=== PATIENT | female | born 1935 | race Caucasian/White ===

== ENCOUNTER 2017-05-28 06:57 | Day surgery (SDC) | payer MEDICARE, BC ==
[2017-05-26 09:33] VITALS: BMI 24.3
[~2017-05-28 06:57] MED LIST: LACTATED RINGERS 1,000 ML IV SCH
[2017-05-28 07:29] LABS: Glucose,Whole Blood 148 mg/dL (75-99)
[2017-05-28 07:30] VITALS: TEMP 97.2
[2017-05-28] MEDS ORDERED: LIDOCAINE 1% INJ 10MG/ML (20 ML MDV) ONE (07:32)
[2017-05-28] MEDS ORDERED: PROPOFOL 10 MG/ML 20 ML VIAL IV ONE (07:32)
--- NOTE | 2017-05-28 08:00 | P.PCN ---
Date of Procedure: 05/28/17 Preoperative Diagnosis: Postoperative Diagnosis: Procedure(s) Performed: Brief history: Patient is a pleasant 81-year-old white female, scheduled for an elective upper endoscopy as well as colonoscopy as a part of evaluation of long-standing history of GERD and Patiño's esophagus as well as prior history of colon polyps. Last EGD and colonoscopy was done in 2013. Procedure performed: Esophagogastroduodenoscopy with biopsy Colonoscopy Preoperative diagnosis: GERD/Patiño's esophagus History of colon polyps Anesthesia: MAC Procedure: After informed consent was obtained from the patient was brought into the endoscopy unit and IV sedation was administered by anesthesia under continuous monitoring. Initially upper endoscopy was done. The Olympus GF 160 video endoscope was inserted inserted into the mouth and esophagus intubated without any difficulty and was gradually advanced into the stomach and duodenum and carefully examined. The bulb and second part of the duodenum appeared normal. The scope was then withdrawn into the stomach adequately insufflated with air and upon careful examination the antrum and body, cardia and fundus appeared normal. The scope was then withdrawn into the esophagus. Moderate size hiatal hernia noted. The GE junction was located at 36 cm to the incisors. It appeared regular with no erythema erosions or ulcerations. There was a 2 cm length of Patiño's like mucosa extending proximal to the GE junction from 34- 36 cm from the incisors and this was biopsied. Rest of the esophagus appeared normal. Patient tolerated the procedure well. At this time the patient continued to remain sedation. Initial digital rectal examination was normal. Olympus CF 160 video colonoscope was then inserted into the rectum and gradually advanced to the sigmoid colon and further advancement was not possible. The scope was removed and a pediatric colonoscope was then introduced into the rectum and gradually advanced into the cecum with [id number] difficulty. Careful examination was performed as the scope was gradually being withdrawn. The prep was excellent. The cecum, ascending colon, transverse colon, descending colon, sigmoid colon and rectum appeared normal. Left sided diverticulosis seen. Retroflexion was performed in the rectum and no lesions were noted. Patient tolerated the procedure well. Impression: 1. Upper endoscopy revealed Patiño's esophagus and moderate size hiatal hernia 2. Colonoscopy revealed left sided diverticulosis but no evidence of colitis or colorectal neoplasia Recommendations: Findings of this examination were discussed with the patient as well as her family. She was advised to follow with the biopsy results. If the biopsy confirms the presence of Patiño's esophagus she can have a repeat upper endoscopy in 2 years Implants: Indications for Procedure: Operative Findings: Description of Procedure:
[2017-05-28 08:12] VITALS: RESP 16
[2017-05-28 08:21] VITALS: BP 125/78; PULSE 66
== END 2017-05-28 08:58 | disposition home or self-care (01) ==
LOC: ORWHC2ENDO 06:57
PROVIDERS: ATTEND Internal Medicine Gastroenterology
DX: Z12.11 Encounter for screening for malignant neoplasm of colon (principal); K22.70 Barrett's esophagus without dysplasia; K44.9 Diaphragmatic hernia without obstruction or gangrene; K57.30 Diverticulosis of large intestine without perforation or abscess without bleeding; Z86.010 Personal history of colon polyps; K58.9 Irritable bowel syndrome, unspecified; I25.10 Atherosclerotic heart disease of native coronary artery without angina pectoris; I10 Essential (primary) hypertension; E78.5 Hyperlipidemia, unspecified; I82.409 Acute embolism and thrombosis of unspecified deep veins of unspecified lower extremity; J44.9 Chronic obstructive pulmonary disease, unspecified; E07.9 Disorder of thyroid, unspecified; M19.90 Unspecified osteoarthritis, unspecified site; Z79.51 Long term (current) use of inhaled steroids; Z79.02 Long term (current) use of antithrombotics/antiplatelets; Z79.899 Other long term (current) drug therapy; Z88.1 Allergy status to other antibiotic agents; Z88.0 Allergy status to penicillin; Z88.2 Allergy status to sulfonamides; Z88.8 Allergy status to other drugs, medicaments and biological substances
CPT/HCPCS: 88305; 43239; J2001; J2704; G0105

== ENCOUNTER 2020-04-11 06:04 | Day surgery (SDC) | payer MEDICARE, BC ==
[2020-04-08 15:07] VITALS: BMI 18.7
[2020-04-11] MEDS ORDERED: PROPOFOL 10 MG/ML 20 ML VIAL IV ONE (07:05)
[2020-04-11] MEDS ORDERED: LIDOCAINE 1% INJ 10MG/ML (20 ML MDV) ONE (07:05)
--- NOTE | 2020-04-11 07:48 | PCN ---
PROCEDURE NOTE DATE OF PROCEDURE: 04/11/2020 PREOPERATIVE DIAGNOSIS: Anemia. POSTOPERATIVE DIAGNOSIS: Anemia. SITE: Right iliac crest. ANESTHESIA: Local with IV systemic sedation. DETAILS: Utilizing sterile technique, the skin overlying the right iliac crest was prepared with Betadine and alcohol. After adequate sterile draping, local anesthesia with 2% lidocaine and systemic sedation, a size 11, 4-inch Little Birdshidi needle was utilized to access the periosteum with ease. A total of 15 mL of aspirate and 3 cm of bone core biopsies were obtained. The patient tolerated the procedure well. There was no immediate procedure related complication. TOTAL BLOOD LOSS: Less than 1 mL. RESULTS: Pending. MMODL / IJN: [id number] /
[2020-04-11 08:18] LABS: Anisocytosis Slight; Basophils # (A) 0.1 k/uL (0-0.2); Basophils % (A) 1 %; Eosinophils # (A) 0.4 k/uL (0-0.7); Eosinophils % (A) 6 %; HCT 29.7 % (34.0-46.0); HGB 9.3 gm/dL (11.4-16.0); Hypochromasia Marked; Lymphocytes # (A) 1.3 k/uL (1.0-4.8); Lymphocytes % (A) 21 %; MCH 29.2 pg (25.0-35.0); MCHC 31.2 g/dL (31.0-37.0); MCV 93.8 fL (80.0-100.0); Mean Platelet Volume 8.5; Monocytes # (A) 0.4 k/uL (0-1.0); Monocytes % (A) 7 %; Neutrophils # (A) 3.8 k/uL (1.3-7.7); Neutrophils % (A) 63 %; Platelet Count 248 k/uL (150-450); RBC 3.17 m/uL (3.80-5.40); RDW 19.8 % (11.5-15.5); Reticulocyte % 6.1 % (0.5-2.0)
[2020-04-11] MEDS ORDERED: LABETALOL 5 MG/ML VIAL MDV IVP ONE ×2 (08:20→08:42)
[2020-04-11 15:42] LABS: Glucose,Whole Blood 152 mg/dL (75-99)
[2020-04-12 08:11] VITALS: BP 138/70; PULSE 59; RESP 17; TEMP 97.4
== END 2020-04-11 09:22 | disposition home or self-care (01) ==
LOC: OR 06:04
PROVIDERS: ATTEND Internal Medicine Hematology & Oncology
DX: D50.9 Iron deficiency anemia, unspecified (principal); E11.9 Type 2 diabetes mellitus without complications; J43.9 Emphysema, unspecified; E07.9 Disorder of thyroid, unspecified; E78.5 Hyperlipidemia, unspecified; J45.909 Unspecified asthma, uncomplicated; M15.9 Polyosteoarthritis, unspecified; I10 Essential (primary) hypertension; R41.3 Other amnesia; K21.9 Gastro-esophageal reflux disease without esophagitis; Z88.8 Allergy status to other drugs, medicaments and biological substances; Z88.1 Allergy status to other antibiotic agents; Z79.899 Other long term (current) drug therapy; Z79.51 Long term (current) use of inhaled steroids; Z79.4 Long term (current) use of insulin; Z79.890 Hormone replacement therapy; Z79.02 Long term (current) use of antithrombotics/antiplatelets; Z88.2 Allergy status to sulfonamides; Z88.0 Allergy status to penicillin; Z86.718 Personal history of other venous thrombosis and embolism; Z90.49 Acquired absence of other specified parts of digestive tract; Z98.890 Other specified postprocedural states; Z95.5 Presence of coronary angioplasty implant and graft; Z90.710 Acquired absence of both cervix and uterus; Z87.891 Personal history of nicotine dependence; Z87.828 Personal history of other (healed) physical injury and trauma; Z91.81 History of falling; Z98.41 Cataract extraction status, right eye; Z98.42 Cataract extraction status, left eye
CPT/HCPCS: 38222; 85025; 85045; J2001; J2704

== ENCOUNTER 2020-11-24 00:51 | Inpatient (IN) | payer MEDICARE, BC ==
[2020-11-24] MEDS ORDERED: PANTOPRAZOLE 40 MG/10 ML VIAL IVP STA (01:09)
--- NOTE | 2020-11-24 01:11 | ED ---
Recheck HPI - General Chief Complaint: Recheck/Abnormal Lab/Rx Stated Complaint: Low hemoglobin Time Seen by Provider: 11/24/20 00:53 Source: patient, EMS Mode of arrival: EMS Limitations: no limitations - History of Present Illness Initial Comments: 85 year-old female patient presents to the emergency department for evaluation of low hemoglobin. Patient states that she has a chronic GI bleed with black stool and has to have frequent blood transfusions. 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 Patient states over the last few days she has been feeling very weak, fatigued, and dizzy. States that she has been having intermittent chest pain. Denies any shortness of breath. Denies any bright red blood per rectum. Patient denies any recent rash, fever, chills, cough, abdominal pain, nausea, vomiting, diarrhea, constipation, back pain, numbness, tingling, hematuria, dysuria, urinary urgency, urinary frequency, headache, visual changes, or any other complaints. - Related Data Home Medications Medication Instructions Recorded Confirmed Cholecalciferol [Vitamin D3] 1,000 unit PO DAILY 05/26/17 04/08/20 Clopidogrel [Plavix] 75 mg PO DAILY 05/26/17 04/08/20 Levothyroxine Sodium [Synthroid] 50 mcg PO SUTUTHSA 05/26/17 04/08/20 Levothyroxine Sodium [Synthroid] 75 mcg PO MOWEFR 05/26/17 04/08/20 Omeprazole 20 mg PO BID 05/26/17 04/08/20 Acetaminophen [Tylenol Extra 500 mg PO BID 04/08/20 04/08/20 Strength] Aspirin [Adult Low Dose Aspirin EC] 81 mg PO DAILY 04/08/20 04/08/20 Atorvastatin [Lipitor] 40 mg PO HS 04/08/20 04/08/20 DULoxetine HCL [Cymbalta] 60 mg PO DAILY 04/08/20 04/08/20 Dicyclomine [Bentyl] 20 mg PO DAILY 04/08/20 04/08/20 Digoxin [Lanoxin] 125 mcg PO DAILY 04/08/20 04/08/20 Insulin Detemir (Levemir) [Levemir] 28 unit SQ HS 04/08/20 04/08/20 L.acidoph,Paracasei, B.lactis 1 each PO BID 04/08/20 04/08/20 [Probiotic] carvediloL [Coreg] 3.125 mg PO BID 04/08/20 04/08/20 lisinopriL [Zestril] 2.5 mg PO DAILY 04/08/20 04/08/20 sitaGLIPtin [Januvia] 100 mg PO DAILY 04/08/20 04/08/20 Allergies Allergy/AdvReac Type Severity Reaction Status Date / Time Sulfa (Sulfonamide Allergy Severe Rash/Hives Verified 11/24/20 01:01 Antibiotics) nitrofurantoin Allergy Rash/Hives Verified 11/24/20 01:01 [From Furadantin] ofloxacin [From Floxin] Allergy high fever Verified 11/24/20 01:01 oxybutynin [From Ditropan] Allergy Rash/Hives Verified 11/24/20 01:01 Penicillins Allergy Rash/Hives Verified 11/24/20 01:01 vancomycin Allergy Rash/Hives Verified 11/24/20 01:01 metformin AdvReac "LETHARGIC Verified 11/24/20 01:01 PER DAUGHTER NANO" Review of Systems ROS Statement: Those systems with pertinent positive or pertinent negative responses have been documented in the HPI. ROS Other: All systems not noted in ROS Statement are negative. Past Medical History Past Medical History: Chest Pain / Angina, COPD, Diabetes Mellitus, Deep Vein Thrombosis (DVT), GERD/Reflux, Hyperlipidemia, Hypertension, Memory Impairment, Osteoarthritis (OA), Rheumatoid Arthritis (RA), Thyroid Disorder, Vascular Disorder Additional Past Medical History / Comment(s): migraines, IBS, hx kidney stones, "low iron", degenerative discs History of Any Multi-Drug Resistant Organisms: MRSA Date of last positivie culture/infection: 11/2018 MDRO Source:: BACK WOUND Past Surgical History: Appendectomy, Bladder Surgery, Heart Catheterization With Stent, Hysterectomy Additional Past Surgical History / Comment(s): stent in rt leg, angioplasty saqib legs, surgery to remove blood clot from rt leg, saqib cataracts, "bypass surgery both legs", PTCA 02/15/20 AT [facility], Right BKA 10/2020. Past Anesthesia/Blood Transfusion Reactions: Previous Problems w/ Anesthesia Additional Past Anesthesia/Blood Transfusion Reaction / Comment(s): during leg surgery got severe itching from the anesthesia-not sure what Date of Last Stent Placement:: 02/15/20 Past Psychological History: Anxiety Past Alcohol Use History: None Reported Past Drug Use History: None Reported - Past Family History Mother Family Medical History: No Reported History General Exam Limitations: no limitations General appearance: alert, in no apparent distress, other (Physical well- developed, thin appearing elderly female patient in no acute distress. Vital signs upon presentation are temperature 98.1F, pulse 85, respirations 18, blood pressure 146/44, pulse ox 100% on room air.) Eye exam: Present: normal appearance, PERRL, EOMI, other (Pale conjunctiva). Absent: scleral icterus, conjunctival injection, periorbital swelling ENT exam: Present: normal exam, normal oropharynx, mucous membranes moist, other (pale mucous membranes) Respiratory exam: Present: normal lung sounds bilaterally. Absent: respiratory distress, wheezes, rales, rhonchi, stridor Cardiovascular Exam: Present: regular rate, normal rhythm, normal heart sounds. Absent: systolic murmur, diastolic murmur, rubs, gallop, clicks GI/Abdominal exam: Present: soft, normal bowel sounds. Absent: distended, tenderness, guarding, rebound, rigid Neurological exam: Present: alert, oriented X3, CN II-XII intact Psychiatric exam: Present: normal affect, normal mood Skin exam: Present: warm, dry, intact, pallor. Absent: rash Course Vital Signs 11/24/20 00:56 Temperature 98.1 F Pulse Rate 85 Respiratory 18 Rate Blood Pressure 146/44 O2 Sat by Pulse 100 Oximetry Medical Decision Making - Medical Decision Making 85-year-old female patient with past medical history significant for chronic GI bleed requiring frequent blood transfusions presents to the emergency department today for evaluation of low hemoglobin. Patient had labs drawn as an outpatient earlier today and was called this evening and instructed to present to the emergency department. Patient states that she always has black stool. Physical examination reveals soft nontender abdomen. She did have a right [id number] amputation 6 weeks ago, the surgical site looks well-healed. Vital signs are stable. She'll be admitted to the hospital for blood transfusion and further evaluation in the morning. Patient is agreeable this plan. Dr. Aranda is accepting. Case discussed with my attending Dr. Chappell. - Lab Data Result diagrams: 11/24/20 01:12 11/24/20 01:12 Lab Results 11/24/20 11/24/20 11/24/20 Range/Units 01:12 01:12 01:12 WBC 5.8 (3.8-10.6) k/uL RBC 3.15 L (3.80-5.40) m/uL Hgb 5.8 L* (11.4-16.0) gm/dL Hct 21.6 L (34.0-46.0) % MCV 68.6 L (80.0-100.0) fL MCH 18.3 L (25.0-35.0) pg MCHC 26.7 L (31.0-37.0) g/dL RDW 17.3 H (11.5-15.5) % Plt Count 397 (150-450) k/uL MPV 7.0 Neutrophils % Not Reportable Neutrophils % (Manual) 68 % Lymphocytes % Not Reportable Lymphocytes % (Manual) 24 % Monocytes % Not Reportable Monocytes % (Manual) 5 % Eosinophils % Not Reportable Eosinophils % (Manual) 2 % Basophils % Not Reportable Metamyelocytes % 1 % Myelocytes % 1 % Neutrophils # Not Reportable Neutrophils # (Manual) 3.94 (1.3-7.7) k/uL Lymphocytes # Not Reportable Lymphocytes # (Manual) 1.39 (1.0-4.8) k/uL Monocytes # Not Reportable Monocytes # (Manual) 0.29 (0-1.0) k/uL Eosinophils # Not Reportable Eosinophils # (Manual) 0.12 (0-0.7) k/uL Basophils # Not Reportable Metamyelocytes # (Man) 0.06 H (0) k/uL Myelocytes # (Manual) 0.06 H (0) k/uL Nucleated RBCs 0 (0-0) /100 WBC Manual Slide Review Performed Polychromasia Present Hypochromasia Marked Poikilocytosis Moderate Anisocytosis Slight Microcytosis Marked PT 9.5 (9.0-12.0) sec INR 0.9 (<1.2) APTT 20.1 L (22.0-30.0) sec Sodium 137 (137-145) mmol/L Potassium 4.8 (3.5-5.1) mmol/L Chloride 103 (98-107) mmol/L Carbon Dioxide 23 (22-30) mmol/L Anion Gap 11 mmol/L BUN 16 (7-17) mg/dL Creatinine 0.43 L (0.52-1.04) mg/dL Est GFR (CKD-EPI)AfAm >90 (>60 ml/min/1.73 sqM) Est GFR (CKD-EPI)NonAf >90 (>60 ml/min/1.73 sqM) Glucose 131 H (74-99) mg/dL Calcium 10.0 (8.4-10.2) mg/dL Total Bilirubin 0.4 (0.2-1.3) mg/dL AST 47 H (14-36) U/L ALT 28 (4-34) U/L Alkaline Phosphatase 117 (38-126) U/L Troponin I (0.000-0.034) ng/mL Total Protein 8.1 (6.3-8.2) g/dL Albumin 4.8 (3.5-5.0) g/dL Blood Type Blood Type Confirm Blood Type Recheck Bld Type Recheck Status Antibody Screen Crossmatch Spec Expiration Date 11/24/20 11/24/20 11/24/20 Range/Units 01:12 01:12 01:41 WBC (3.8-10.6) k/uL RBC (3.80-5.40) m/uL Hgb (11.4-16.0) gm/dL Hct (34.0-46.0) % MCV (80.0-100.0) fL MCH (25.0-35.0) pg MCHC (31.0-37.0) g/dL RDW (11.5-15.5) % Plt Count (150-450) k/uL MPV Neutrophils % Neutrophils % (Manual) % Lymphocytes % Lymphocytes % (Manual) % Monocytes % Monocytes % (Manual) % Eosinophils % Eosinophils % (Manual) % Basophils % Metamyelocytes % % Myelocytes % % Neutrophils # Neutrophils # (Manual) (1.3-7.7) k/uL Lymphocytes # Lymphocytes # (Manual) (1.0-4.8) k/uL Monocytes # Monocytes # (Manual) (0-1.0) k/uL Eosinophils # Eosinophils # (Manual) (0-0.7) k/uL Basophils # Metamyelocytes # (Man) (0) k/uL Myelocytes # (Manual) (0) k/uL Nucleated RBCs (0-0) /100 WBC Manual Slide Review Polychromasia Hypochromasia Poikilocytosis Anisocytosis Microcytosis PT (9.0-12.0) sec INR (<1.2) APTT (22.0-30.0) sec Sodium (137-145) mmol/L Potassium (3.5-5.1) mmol/L Chloride (98-107) mmol/L Carbon Dioxide (22-30) mmol/L Anion Gap mmol/L BUN (7-17) mg/dL Creatinine (0.52-1.04) mg/dL Est GFR (CKD-EPI)AfAm (>60 ml/min/1.73 sqM) Est GFR (CKD-EPI)NonAf (>60 ml/min/1.73 sqM) Glucose (74-99) mg/dL Calcium (8.4-10.2) mg/dL Total Bilirubin (0.2-1.3) mg/dL AST (14-36) U/L ALT (4-34) U/L Alkaline Phosphatase (38-126) U/L Troponin I <0.012 (0.000-0.034) ng/mL Total Protein (6.3-8.2) g/dL Albumin (3.5-5.0) g/dL Blood Type O Positive Blood Type Confirm O Positive Blood Type Recheck No Previous Record Bld Type Recheck Status CABO Indicated Antibody Screen NEGATIVE Crossmatch See Detail Spec Expiration Date 11/27/20202311 - EKG Data -: EKG Interpreted by Ct EKG Comments: EKG obtained at 0112 shows sinus rhythm with PACs. Ventricular is 82, [place] interval 152, QRS duration 82, QT 362, QTc 422. No evidence of ST elevation or depression. Disposition Clinical Impression: Anemia, GI bleed Disposition: ADMITTED IP TO THIS [facility] Condition: Serious Referrals: Kaylynn Oliveira MD [Primary Care Provider] - 1-2 days Decision to Admit Reason: Admit from EC Decision Date: 11/24/20 Decision Time: 02:19
[2020-11-24 01:36] LABS: Anisocytosis Slight; HCT 21.6 % (34.0-46.0); Hypochromasia Marked; MCH 18.3 pg (25.0-35.0); MCHC 26.7 g/dL (31.0-37.0); MCV 68.6 fL (80.0-100.0); Microcytosis Marked; Platelet Count 397 k/uL (150-450); Poikilocytosis Moderate; RBC 3.15 m/uL (3.80-5.40); RDW 17.3 % (11.5-15.5); WBC 5.8 k/uL (3.8-10.6)
[2020-11-24 01:43] LABS: ALT 28 U/L (4-34); AST 47 U/L (14-36); African American GFR (CKD) >90 (>60 ml/min/1.73 sqM); Albumin 4.8 g/dL (3.5-5.0); Alkaline Phosphatase 117 U/L (38-126); Anion Gap 11 mmol/L; Blood Urea Nitrogen 16 mg/dL (7-17); Carbon Dioxide 23 mmol/L (22-30); Chloride 103 mmol/L (98-107); Glucose 131 mg/dL (74-99); Non-African American GFR(CKD) >90 (>60 ml/min/1.73 sqM); Potassium 4.8 mmol/L (3.5-5.1); Sodium 137 mmol/L (137-145); Total Bilirubin 0.4 mg/dL (0.2-1.3); Total Protein 8.1 g/dL (6.3-8.2)
[2020-11-24 01:46] LABS: HGB 5.8 gm/dL (11.4-16.0)
[2020-11-24 01:47] LABS: INR 0.9 (<1.2); Prothrombin Time 9.5 sec (9.0-12.0)
[2020-11-24 01:52] LABS: Partial Thromboplastin Time 20.1 sec (22.0-30.0)
[2020-11-24 02:02] LABS: Eosinophils # (M) 0.12 k/uL (0-0.7); Lymphocytes # (M) 1.39 k/uL (1.0-4.8); Metamyelocytes # (M) 0.06 k/uL (0); Metamyelocytes % 1 %; Monocytes # (M) 0.29 k/uL (0-1.0); Myelocytes # (M) 0.06 k/uL (0); Myelocytes % 1 %; Neutrophils # (M) 3.94 k/uL (1.3-7.7); Neutrophils % (M) 68 %; Nucleated Red Blood Cells 0 /100 WBC (0-0); Total Cells Counted 200
[2020-11-24 02:05] LABS: Polychromasia Present
[2020-11-24] MEDS ORDERED: ACETAMINOPHEN TAB 325 MG TAB PO PRN (02:17)
[2020-11-24] MEDS ORDERED: NALOXONE 0.4 MG/ML 1 ML VIAL IV PRN (02:17)
[2020-11-24 04:44] LABS: Glucose,Whole Blood 75 mg/dL (75-99)
[2020-11-24] MEDS ORDERED: LEVOTHYROXINE 50 MCG TAB PO SCH (06:30)
[2020-11-24 06:37] LABS: Glucose,Whole Blood 100 mg/dL (75-99)
[2020-11-24] MEDS: carvediloL 3.125 MG TAB PO SCH ×2 (07:04→17:09)
[2020-11-24] MEDS: SODIUM CHLORIDE 0.9% 1,000 ML IV SCH (07:04)
[2020-11-24] MEDS: ACETAMINOPHEN TAB 500 MG TAB PO SCH ×2 (07:50→20:23)
[2020-11-24] MEDS: PANTOPRAZOLE 40 MG TABLET PO SCH ×2 (07:50→20:23)
[2020-11-24] MEDS: DICYCLOMINE 20 MG TAB PO SCH (07:50)
[2020-11-24] MEDS: DULoxetine HCL 60 MG CAPSULE.DR PO SCH (07:50)
[2020-11-24] MEDS: DIGOXIN 125 MCG TAB PO SCH (07:50)
[2020-11-24] MEDS: LINAGLIPTIN 5 MG TABLET PO SCH (07:50)
[2020-11-24] MEDS: CHOLECALCIFEROL 25 MCG (1000 IU) TABLET PO SCH (07:51)
[2020-11-24] MEDS: LACTOBACILLUS ACIDOPH & BULGAR 1 EACH PACKET PO SCH ×2 (07:51→20:23)
[2020-11-24 08:52] LABS: Anisocytosis Slight; HCT 23.9 % (34.0-46.0); Hypochromasia Marked; Mean Platelet Volume 7.1; Microcytosis Slight; Platelet Count 308 k/uL (150-450); Poikilocytosis Marked; RBC 3.03 m/uL (3.80-5.40); RDW 19.4 % (11.5-15.5); WBC 5.3 k/uL (3.8-10.6)
[2020-11-24 08:57] LABS: HGB 6.7 gm/dL (11.4-16.0)
[2020-11-24 08:58] LABS: MCV 78.7 fL (80.0-100.0)
[2020-11-24 11:07] LABS: Anisocytosis Slight; HCT 20.7 % (34.0-46.0); Hypochromasia Marked; MCH 22.1 pg (25.0-35.0); MCHC 29.9 g/dL (31.0-37.0); Microcytosis Marked; Platelet Count 302 k/uL (150-450); Poikilocytosis Marked; WBC 4.7 k/uL (3.8-10.6)
[2020-11-24 11:09] LABS: HGB 6.2 gm/dL (11.4-16.0); MCV 73.7 fL (80.0-100.0)
[2020-11-24 11:41] LABS: Glucose,Whole Blood 171 mg/dL (75-99)
--- NOTE | 2020-11-24 13:41 | P.CONS ---
History of Present Illness - Reason for Consult Consult date: 11/24/20 Anemia Requesting physician: Kareem Aranda - Chief Complaint Low hemoglobin on labs - History of Present Illness Ms. Wills is a very pleasant 85 yo female with history of anemia requiring iron infusion and blood transfusions in the past, and felt to be due to occult GI bleeding. SHe is here as her OP labs revealed acute on chronic anemia, Hgb 5.8. Repeat in ED with Hgb 5.8, MCV 60's. She was transfused and Hgb improved to 6.7. She was admitted for further management. Hematologic history: Pt follows with Dr. Nguyen. She was referred by Dr Oliveira for evaluation and treatment of Anemia. The patient stated being diagnosed with Anemia over a year ago, she was started on Plavix due to PVD 6 months earlier. The patint had EGD+Colonoscopy with suspicion of Gi blood loss, work up was negative. She was given PRBC transfusion on multiple occasions and Iron infusion once in mid 2011. She attempted, but could not tolerate, different oral iron preperations, mainly due to severe epigastric discomfort. She denies any Melena or blood per rectum, no Gross Hematuria. C/O Generalized fatige and loss of Stamina: was given Iron infusion (Feraheme) with excellent tolerance and good response. Had recent Colonoscopy by Dr Nigel Temple : AV Malformation : Treated. C/O Increasing fatigue and loss of stamina over last few weeks: Feraheme x 2 weeks infused : Feels so much better, fell recently with minimal trauma. C/O increasing fatigue, no obvious blood loss: given further Feraheme, feels better, had peripheral vascular surgery done. C/O slight fatigue, Hgb decreased with decreasing Iron > Feraheme> stronger Still feels well (01/07/15) , fully active 04/08/15 : Feels fine, started on Glimperide, no signs/symptoms of blood loss, remians fully active, has minimal constitutional symptoms of anemia. 07/29/15 : C/O increasing fatigue 09/03/15 : Feels Ok, tolerated Feraheme well. 01/07/16 : C/O back pain & arthropathy. 05/12/16: Feels Ok, C/O sinusitis discomfort > started on ABX by Dr Oliveira. No sings/symptoms of blood loss. 08/11/16: Feels Ok, C/O chronic arthralgias. 01/12/17: Feels Ok, C/O recent URTI. active. 10/05/17: Feels Ok, received IV Feraheme after was found to have HGB 9.6 with MCV 77 > Feels stronger now, better stamina and quality of life. 01/11/18: Feels Ok, saddened to loss of , had severe colitis and was hospitalized X 4 days>fully recovered. 05/12/18: C/O fatigue, loosing weight with diabetic diet modification. 06/21/18: Feels Ok, stronger. 12/22/18: C/O extreme fatigue and lack of stamina. Was diagnosed with TN and seen at [facility]> PTCA with stent placement performed > on Plavix> No melena or hematochezia 01/19/19: Feels well, stronger, tolerating iron infusion well. May need vascular surgery to RLE soon. 02/21/19: Feels Ok, a bit tired, further vascular surgery soon. 05/10/19: Feels Ok, had R leg vascular bypass, EGD & Colonoscopy > ? Esophageal bleeding, Eliquis & ASA stopped, still taking Plavix. 10/12/19: C/O extreme fatigue, will have further cardiac intervention soon, as well as, GI studies (EGD/Colonoscopy) by Dr Nigel Temple 12/22/19-Pt here today for acute visit, she is still noticing fatigue, she felt a little better after her iron infusion but, this has not lasted, she denies any bleeding. 03/07/20: Feels very tired, having palpitations & tinnitus with pain in both arms. HGB 5.7 today 03/21/20: Feels a bit stronger after PRBC X 2 transfusion. 04/25/20: C/O fatigue. Had Bone marrow study : Totally WNL. 05/21/20: Feels a bit stronger, given Feraheme X 3, will have Colonoscopy/EGD by Dr Nigel Temple soon 06/25/20: C/O excessive fatigue 07/30/20: Feels well, C/O fatigue 08/23/20: Feels Ok, No further melena, had negative EGD/Colonoscopy by Dr Nigel Temple. Review of Systems All systems: negative Past Medical History Past Medical History: Chest Pain / Angina, COPD, Diabetes Mellitus, Deep Vein Thrombosis (DVT), GERD/Reflux, Hyperlipidemia, Hypertension, Memory Impairment, Osteoarthritis (OA), Rheumatoid Arthritis (RA), Thyroid Disorder, Vascular D isorder Additional Past Medical History / Comment(s): migraines, IBS, hx kidney stones, "low iron", degenerative discs History of Any Multi-Drug Resistant Organisms: MRSA Year Discovered:: 11/2018 MDRO Source:: BACK WOUND Past Surgical History: Appendectomy, Bladder Surgery, Heart Catheterization With Stent, Hysterectomy Additional Past Surgical History / Comment(s): stent in rt leg, angioplasty saqib legs, surgery to remove blood clot from rt leg, saqib cataracts, "bypass surgery both legs", PTCA 02/15/20 AT [facility] [place], Right BKA 10/2020. Past Anesthesia/Blood Transfusion Reactions: Previous Problems w/ Anesthesia Additional Past Anesthesia/Blood Transfusion Reaction / Comm: during leg surgery got severe itching from the anesthesia-not sure what Date of Last Stent Placement:: 02/15/20 Past Psychological History: Anxiety Smoking Status: Never smoker Past Alcohol Use History: None Reported Additional Past Alcohol Use History / Comment(s): quit smoking 12 yrs ago, s tarted smoking in teens, about 1 PPD Past Drug Use History: None Reported - Past Family History Mother Family Medical History: No Reported History Medications and Allergies Home Medications Medication Instructions Recorded Confirmed Type Clopidogrel [Plavix] 75 mg PO DAILY 05/26/17 11/24/20 History Levothyroxine Sodium [Synthroid] 50 mcg PO SUTUTHSA 05/26/17 11/24/20 History Levothyroxine Sodium [Synthroid] 75 mcg PO MOWEFR 05/26/17 11/24/20 History Omeprazole 20 mg PO BID 05/26/17 11/24/20 History Acetaminophen [Tylenol Extra 500 mg PO BID 04/08/20 11/24/20 History Strength] Aspirin [Adult Low Dose Aspirin EC] 81 mg PO DAILY 04/08/20 11/24/20 History Atorvastatin [Lipitor] 40 mg PO HS 04/08/20 11/24/20 History DULoxetine HCL [Cymbalta] 60 mg PO DAILY 04/08/20 11/24/20 History Dicyclomine [Bentyl] 20 mg PO DAILY 04/08/20 11/24/20 History Digoxin [Lanoxin] 125 mcg PO DAILY 04/08/20 11/24/20 History Insulin Detemir (Levemir) [Levemir] 28 unit SQ HS 04/08/20 11/24/20 History L.acidoph,Paracasei, B.lactis 1 cap PO BID 04/08/20 11/24/20 History [Probiotic] carvediloL [Coreg] 3.125 mg PO BID 04/08/20 11/24/20 History lisinopriL [Zestril] 2.5 mg PO DAILY 04/08/20 11/24/20 History sitaGLIPtin [Januvia] 100 mg PO DAILY 04/08/20 11/24/20 History Cholecalciferol [Vitamin D3 (25 50 mcg PO DAILY 11/24/20 11/24/20 History Mcg = 1000 Iu)] Gabapentin 300 mg PO BID PRN 11/24/20 11/24/20 History HYDROcodone/APAP 5-325MG [[place] 1 tab PO Q4HR PRN 11/24/20 11/24/20 History 5-325] Allergies Allergy/AdvReac Type Severity Reaction Status Date / Time Sulfa (Sulfonamide Allergy Severe Rash/Hives Verified 11/24/20 07:44 Antibiotics) nitrofurantoin Allergy Rash/Hives Verified 11/24/20 07:44 [From Furadantin] ofloxacin [From Floxin] Allergy high fever Verified 11/24/20 07:44 oxybutynin [From Ditropan] Allergy Rash/Hives Verified 11/24/20 07:44 Penicillins Allergy Rash/Hives Verified 11/24/20 07:44 vancomycin Allergy Rash/Hives Verified 11/24/20 07:44 metformin AdvReac "LETHARGIC Verified 11/24/20 07:44 PER DAUGHTER NANO" Physical Exam Vitals: Vital Signs Temp Pulse Pulse Resp BP BP Pulse Ox 11/24/20 13:14 98.7 F 86 16 111/53 100 11/24/20 13:04 998.7 F H 77 16 145/65 98 11/24/20 07:52 97.9 F 77 16 129/63 98 11/24/20 07:45 97.9 F 81 16 129/63 98 11/24/20 04:07 98.2 F 88 16 136/61 99 11/24/20 04:06 98.2 F 86 16 136/61 99 11/24/20 04:00 98.0 F 78 16 148/64 97 11/24/20 03:37 97.9 F 77 16 137/71 100 11/24/20 03:27 98.3 F 82 16 137/62 100 11/24/20 02:57 97.9 F 89 16 147/63 100 11/24/20 00:56 98.1 F 85 18 146/44 100 Intake and Output 11/23/20 11/24/20 11/24/20 22:59 06:59 14:59 Intake Total 0 980 Output Total 600 Balance 0 380 Intake: Intake, IV Titration 120 Amount Sodium Chloride 0.9% 1, 120 000 ml @ 20 mls/hr IV . Q24H [facility] Rx#:[id number] Oral 240 Blood Product 0 620 Rc As-1 Unit 0 310 [id number] Rc As-1 Unit 0 [id number] Output: Urine 600 Other: Weight 30 kg To limit exposure to and protect all from the spread of COVID, part/all of the encounter was provided by chart review, telephone/video visit with the patient/family, and/or discussion with other teams and ancillary staff. Results CBC & Chem 7: 11/24/20 10:59 11/24/20 01:12 Labs: Abnormal Lab Results - Last 24 Hours (Table) 11/24/20 11/24/20 11/24/20 Range/Units 01:12 01:12 01:12 RBC 3.15 L (3.80-5.40) m/uL Hgb 5.8 L* (11.4-16.0) gm/dL Hct 21.6 L (34.0-46.0) % MCV 68.6 L (80.0-100.0) fL MCH 18.3 L (25.0-35.0) pg MCHC 26.7 L (31.0-37.0) g/dL RDW 17.3 H (11.5-15.5) % Metamyelocytes # (Man) 0.06 H (0) k/uL Myelocytes # (Manual) 0.06 H (0) k/uL APTT 20.1 L (22.0-30.0) sec Creatinine 0.43 L (0.52-1.04) mg/dL Glucose 131 H (74-99) mg/dL POC Glucose (mg/dL) (75-99) mg/dL AST 47 H (14-36) U/L Crossmatch 11/24/20 11/24/20 11/24/20 Range/Units 01:12 06:32 08:12 RBC 3.03 L (3.80-5.40) m/uL Hgb 6.7 L* (11.4-16.0) gm/dL Hct 23.9 L (34.0-46.0) % MCV 78.7 L D (80.0-100.0) fL MCH 22.0 L (25.0-35.0) pg MCHC 28.0 L (31.0-37.0) g/dL RDW 19.4 H (11.5-15.5) % Metamyelocytes # (Man) (0) k/uL Myelocytes # (Manual) (0) k/uL APTT (22.0-30.0) sec Creatinine (0.52-1.04) mg/dL Glucose (74-99) mg/dL POC Glucose (mg/dL) 100 H (75-99) mg/dL AST (14-36) U/L Crossmatch See Detail 11/24/20 11/24/20 Range/Units 10:59 11:39 RBC 2.80 L (3.80-5.40) m/uL Hgb 6.2 L* (11.4-16.0) gm/dL Hct 20.7 L (34.0-46.0) % MCV 73.7 L D (80.0-100.0) fL MCH 22.1 L (25.0-35.0) pg MCHC 29.9 L (31.0-37.0) g/dL RDW 20.0 H (11.5-15.5) % Metamyelocytes # (Man) (0) k/uL Myelocytes # (Manual) (0) k/uL APTT (22.0-30.0) sec Creatinine (0.52-1.04) mg/dL Glucose (74-99) mg/dL POC Glucose (mg/dL) 171 H (75-99) mg/dL AST (14-36) U/L Crossmatch Assessment and Plan Assessment: 1. Acute on chronic microcytic anemia 2. Concern for GI bleed Plan: Ms. Wills is a very pleasant 85 yo female with history of chronic microcytic anemia felt to be due to occult GI bleed, here for acute on chronic anemia. Hgb 5.8 on presentation, improved to 6.8. Will complete work up with iron panel, B12, and folate and supplement as needed. GI on board. Continue supportive transfusion to maintain Hgb >7. To limit exposure to and protect all from the spread of COVID, part/all of the encounter was provided by chart review, telephone/video visit with the patient/family, and/or discussion with other teams and ancillary staff.
--- NOTE | 2020-11-24 15:10 | P.HPIM ---
History of Present Illness H&P Date: 11/24/20 Chief Complaint: VK and tired History of presenting complaint: This is a pleasant 85-year-old patient of Dr. Bettye Oliveira. Has a history of chronic GI bleed with black stools. Has had multiple blood transfusions. Patient about 6 weeks ago underwent right below-knee amputation at at the [facility]. That was lasting patient had blood transfusion. Patient presented early hours of this morning feeling weak diet and rundown. Had continued to have dock stools. Hemoglobin was found to be less than 7 and blood was ordered. Patient's last EGD was by Dr. Paula it was unremarkable. No abdominal pain. Appetite is good. No weight loss. Patient does have a walker reveal chair. Of feeding prosthesis for his right lower extremity. Dizzy tired and rundown. Review of systems: GEN.: Retired EYES: None HEENT: None NECK: None RESPIRATORY: None CARDIOVASCULAR: None GASTROINTESTINAL: Dock stools GENITOURINARY: None MUSCULOSKELETAL: Arthritis in the joints LYMPHATICS: None HEMATOLOGICAL: None PSYCHIATRY: None NEUROLOGICAL: None Past medical history to include: In general, COPD, diabetes, DVT, GERD, hypertension, hyperlipidemia, memory impairment, Mykel arthritis, rheumatoid arthritis, thyroid disorder, vascular disorder, irritable bowel syndrome, kidneys stones, low iron, coronary artery Nixon stent, stent in the right leg, angioplasty in both the lower extremities, right below-knee amputation Social history: Lives by herself. Started smoking as a teen, about a pack a day stopped smoking about 12 years ago. No alcohol. Physical examination: VITAL SIGNS: 98.1, 85, 18, 146/44, 100% on room air GENERAL: BMI 12.9, laying in bed, awake. Wasting of the muscles loss of subcutaneous fat EYES: [Pupils equal. Conjunctiva pale l. HEENT: External appearance of nose and ears normal, oral cavity grossly normal. NECK: JVD not raised; masses not palpable. HEART: First and second heart sounds are normal; no edema. LUNGS: Respiratory rate normal; decreased breath sounds. ABDOMEN: Soft, nontender, liver spleen not palpable, no masses palpable. PSYCH: Alert and oriented x3; mood and affect normal. NEUROLOGICAL: Cranial nerves grossly intact; no facial asymmetry, power and sensation grossly intact. MUSCULAR skeletal: Evidence of severe OA especially in the hands, right below- knee amputation LYMPHATICS: No lymph nodes palpable in the axilla and neck INVESTIGATIONS, reviewed in the clinical context: White count 5.8 hemoglobin 5.8 potassium 4.8 creatinine 0.43 Coronavirus [PCR]-not detected Assessment and plan: -This is a patient long-standing history: Anemia and multiple blood transfusions. Also had endoscopy that was reported to be unremarkable. Now presents with symptomatic anemia with a hemoglobin 5.8. Blood is being trans fused. GI consulted. Note patient is on aspirin and Plavix -COPD in an previous smoker -GERD, continue PPI -Essential hypertension, continue Zestril -Hyperlipidemia, continue Lipitor -Mild cognitive impairment, follow clinically -Chronic rheumatoid arthritis and --primary osteoarthritis -Coronary artery disease prior history of stent, continue with Coreg Zestril -Recent right below-knee amputation, obviating prosthetic assessment -Peripheral arterial disease, on Lipitor and antiplatelet agents -Moderate protein calorie malnutrition, consult dietitian -Hypothyroid on Synthroid. Check TFT, given the patient's phenotype does not appear to be that of a hypothyroid -Diabetes mellitus type 2, chronically on insulin, follow Accu-Cheks. Hold off Levemir for now -Irritable bowel syndrome on Bentyl -Full code Past Medical History Past Medical History: Chest Pain / Angina, COPD, Diabetes Mellitus, Deep Vein Thrombosis (DVT), GERD/Reflux, Hyperlipidemia, Hypertension, Memory Impairment, Osteoarthritis (OA), Rheumatoid Arthritis (RA), Thyroid Disorder, Vascular Disorder Additional Past Medical History / Comment(s): migraines, IBS, hx kidney stones, "low iron", degenerative discs History of Any Multi-Drug Resistant Organisms: MRSA Date of last positivie culture/infection: 11/2018 MDRO Source:: BACK WOUND Past Surgical History: Appendectomy, Bladder Surgery, Heart Catheterization With Stent, Hysterectomy Additional Past Surgical History / Comment(s): stent in rt leg, angioplasty saqib legs, surgery to remove blood clot from rt leg, saqib cataracts, "bypass surgery both legs", PTCA 02/15/20 AT [facility] [place], Right BKA 10/2020. Past Anesthesia/Blood Transfusion Reactions: Previous Problems w/ Anesthesia Additional Past Anesthesia/Blood Transfusion Reaction / Comment(s): during leg surgery got severe itching from the anesthesia-not sure what Date of Last Stent Placement:: 02/15/20 Past Psychological History: Anxiety Smoking Status: Never smoker Past Alcohol Use History: None Reported Additional Past Alcohol Use History / Comment(s): quit smoking 12 yrs ago, started smoking in teens, about 1 PPD Past Drug Use History: None Reported - Past Family History Mother Family Medical History: No Reported History Medications and Allergies Home Medications Medication Instructions Recorded Confirmed Type Clopidogrel [Plavix] 75 mg PO DAILY 05/26/17 11/24/20 History Levothyroxine Sodium [Synthroid] 50 mcg PO SUTUTHSA 05/26/17 11/24/20 History Levothyroxine Sodium [Synthroid] 75 mcg PO MOWEFR 05/26/17 11/24/20 History Omeprazole 20 mg PO BID 05/26/17 11/24/20 History Acetaminophen [Tylenol Extra 500 mg PO BID 04/08/20 11/24/20 History Strength] Aspirin [Adult Low Dose Aspirin EC] 81 mg PO DAILY 04/08/20 11/24/20 History Atorvastatin [Lipitor] 40 mg PO HS 04/08/20 11/24/20 History DULoxetine HCL [Cymbalta] 60 mg PO DAILY 04/08/20 11/24/20 History Dicyclomine [Bentyl] 20 mg PO DAILY 04/08/20 11/24/20 History Digoxin [Lanoxin] 125 mcg PO DAILY 04/08/20 11/24/20 History Insulin Detemir (Levemir) [Levemir] 28 unit SQ HS 04/08/20 11/24/20 History L.acidoph,Paracasei, B.lactis 1 cap PO BID 04/08/20 11/24/20 History [Probiotic] carvediloL [Coreg] 3.125 mg PO BID 04/08/20 11/24/20 History lisinopriL [Zestril] 2.5 mg PO DAILY 04/08/20 11/24/20 History sitaGLIPtin [Januvia] 100 mg PO DAILY 04/08/20 11/24/20 History Cholecalciferol [Vitamin D3 (25 50 mcg PO DAILY 11/24/20 11/24/20 History Mcg = 1000 Iu)] Gabapentin 300 mg PO BID PRN 11/24/20 11/24/20 History HYDROcodone/APAP 5-325MG [[place] 1 tab PO Q4HR PRN 11/24/20 11/24/20 History 5-325] Allergies Allergy/AdvReac Type Severity Reaction Status Date / Time Sulfa (Sulfonamide Allergy Severe Rash/Hives Verified 11/24/20 07:44 Antibiotics) nitrofurantoin Allergy Rash/Hives Verified 11/24/20 07:44 [From Furadantin] ofloxacin [From Floxin] Allergy high fever Verified 11/24/20 07:44 oxybutynin [From Ditropan] Allergy Rash/Hives Verified 11/24/20 07:44 Penicillins Allergy Rash/Hives Verified 11/24/20 07:44 vancomycin Allergy Rash/Hives Verified 11/24/20 07:44 metformin AdvReac "LETHARGIC Verified 11/24/20 07:44 PER DAUGHTER NANO" Physical Exam Vitals: Vital Signs Temp Pulse Pulse Resp BP BP Pulse Ox 11/24/20 07:45 97.9 F 81 16 129/63 98 11/24/20 04:07 98.2 F 88 16 136/61 99 11/24/20 04:06 98.2 F 86 16 136/61 99 11/24/20 04:00 98.0 F 78 16 148/64 97 11/24/20 03:37 97.9 F 77 16 137/71 100 11/24/20 03:27 98.3 F 82 16 137/62 100 11/24/20 02:57 97.9 F 89 16 147/63 100 11/24/20 00:56 98.1 F 85 18 146/44 100 Intake and Output 11/23/20 11/24/20 11/24/20 22:59 06:59 14:59 Intake Total 0 550 Balance 0 550 Intake: Oral 240 Blood Product 0 310 Rc As-1 Unit 0 310 [id number] Other: Weight 30 kg Results CBC & Chem 7: 11/24/20 10:59 11/24/20 01:12 Labs: Abnormal Lab Results - Last 24 Hours (Table) 11/24/20 11/24/20 11/24/20 Range/Units 01:12 01:12 01:12 RBC 3.15 L (3.80-5.40) m/uL Hgb 5.8 L* (11.4-16.0) gm/dL Hct 21.6 L (34.0-46.0) % MCV 68.6 L (80.0-100.0) fL MCH 18.3 L (25.0-35.0) pg MCHC 26.7 L (31.0-37.0) g/dL RDW 17.3 H (11.5-15.5) % Metamyelocytes # (Man) 0.06 H (0) k/uL Myelocytes # (Manual) 0.06 H (0) k/uL APTT 20.1 L (22.0-30.0) sec Creatinine 0.43 L (0.52-1.04) mg/dL Glucose 131 H (74-99) mg/dL POC Glucose (mg/dL) (75-99) mg/dL AST 47 H (14-36) U/L Crossmatch 11/24/20 11/24/20 11/24/20 Range/Units 01:12 06:32 08:12 RBC 3.03 L (3.80-5.40) m/uL Hgb 6.7 L* (11.4-16.0) gm/dL Hct 23.9 L (34.0-46.0) % MCV 78.7 L D (80.0-100.0) fL MCH 22.0 L (25.0-35.0) pg MCHC 28.0 L (31.0-37.0) g/dL RDW 19.4 H (11.5-15.5) % Metamyelocytes # (Man) (0) k/uL Myelocytes # (Manual) (0) k/uL APTT (22.0-30.0) sec Creatinine (0.52-1.04) mg/dL Glucose (74-99) mg/dL POC Glucose (mg/dL) 100 H (75-99) mg/dL AST (14-36) U/L Crossmatch See Detail Thrombosis Risk Factor Assmnt - Choose All That Apply Any of the Below Risk Factors Present?: No Other Risk Factors: Yes Each Risk Factor Represents 3 Points: Age 75 years or older, History of DVT/PE Other congenital or acquired thrombophilia - If yes, enter type in comment: Yes Each Risk Factor Represents 5 Points: Major surgery lasting over 3 hours Thrombosis Risk Factor Assessment Total Risk Factor Score: 11 Thrombosis Risk Factor Assessment Level: High Risk
[2020-11-24] MEDS ORDERED: MAGNESIUM CITRATE 296 ML BOTTLE PO ONE (17:00)
[2020-11-24 17:12] LABS: Glucose,Whole Blood 174 mg/dL (75-99)
[2020-11-24 20:09] LABS: Anisocytosis Moderate; HCT 28.9 % (34.0-46.0); Hypochromasia Marked; MCH 23.6 pg (25.0-35.0); MCHC 30.3 g/dL (31.0-37.0); MCV 77.9 fL (80.0-100.0); Mean Platelet Volume 6.9; Microcytosis Moderate; Platelet Count 305 k/uL (150-450); Poikilocytosis Marked; RBC 3.71 m/uL (3.80-5.40); RDW 20.1 % (11.5-15.5); WBC 5.3 k/uL (3.8-10.6)
[2020-11-24 20:17] LABS: Glucose,Whole Blood 170 mg/dL (75-99)
[2020-11-24] MEDS: ATORVASTATIN 40 MG TAB PO SCH (20:23)
[2020-11-24 20:46] LABS: HGB 8.8 gm/dL (11.4-16.0)
[2020-11-24] MEDS ORDERED: INSULIN DETEMIR (LEVEMIR) 100 UNIT/ML SYR SQ SCH (21:00)
--- NOTE | 2020-11-24 21:36 | P.CONS ---
History of Present Illness - Reason for Consult Consult date: 11/24/20 Microcytic anemia Requesting physician: Kareem Aranda - Chief Complaint Weakness, anemia - History of Present Illness 85-year-old female with multiple medical comorbidities including diabetes mellitus, COPD, chronic anemia, prior DVT, IBS, GERD, hyperlipidemia, hypertensi on, osteoarthritis and recent right below the knee amputation at [facility] who presented for evaluation of fatigue and anemia. The patient has a known history of chronic anemia for which she follows up with hematology. Previously she has undergone EGD and colonoscopy in 05/2017 with findings of its esophagus and a moderate size hiatal hernia and diverticulosis on colonoscopy, this was repeated with both EGD and colonoscopy performed within the 6 months as [facility] as per patient's report but she states that no source of bleeding was found at that time. She denies any nausea, vomiting, abdominal pain and reports that bowel movements are dark at baseline. She had been reporting weakness and dizziness and presented to the hospital where she was found to have a fall in her hemoglobin from 9.3 previously down to 4.5 subsequently 6.2 after transfusion. Review of Systems REVIEW OF SYSTEMS: CONSTITUTIONAL: Denies any fevers, chills, weight change but she does report weakness and fatigue. CARDIOVASCULAR: Denies any chest pain, palpitations high or low blood pressures RESPIRATORY: Denies any shortness of breath, hemoptysis or cough. GENITOURINARY: No dysuria or hematuria. MUSCULOSKELETAL: No weakness reported. SKIN: Denies any new rashes or lesions, jaundice or pallor. PSYCHIATRIC: Denies any depression or anxiety. NEUROLOGY: Denies headache, denies any new focal deficits. EARS/NOSE/THROAT: No recent hearing change, congestion, nasal discharge or sore throat. EYES: No pain in eyes, discharge or change in vision. GASTROINTESTINAL: As per HPI. Past Medical History Past Medical History: Chest Pain / Angina, COPD, Diabetes Mellitus, Deep Vein Thrombosis (DVT), GERD/Reflux, Hyperlipidemia, Hypertension, Memory Impairment, Osteoarthritis (OA), Rheumatoid Arthritis (RA), Thyroid Disorder, Vascular Disorder Additional Past Medical History / Comment(s): migraines, IBS, hx kidney stones, "low iron", degenerative discs History of Any Multi-Drug Resistant Organisms: MRSA Year Discovered:: 11/2018 MDRO Source:: BACK WOUND Past Surgical History: Appendectomy, Bladder Surgery, Heart Catheterization With Stent, Hysterectomy Additional Past Surgical History / Comment(s): stent in rt leg, angioplasty saqbi legs, surgery to remove blood clot from rt leg, saqib cataracts, "bypass surgery both legs", [place] 02[place] [facility] [place] BKA 10/2020. Past Anesthesia/Blood Transfusion Reactions: Previous Problems w/ Anesthesia Additional Past Anesthesia/Blood Transfusion Reaction / Comm: during leg surgery got severe itching from the anesthesia-not sure what Date of Last Stent Placement:: 02/15/20 Past Psychological History: Anxiety Smoking Status: Never smoker Past Alcohol Use History: None Reported Additional Past Alcohol Use History / Comment(s): quit smoking 12 yrs ago, started smoking in teens, about 1 PPD Past Drug Use History: None Reported - Past Family History Mother Family Medical History: No Reported History Medications and Allergies Home Medications Medication Instructions Recorded Confirmed Type Clopidogrel [Plavix] 75 mg PO DAILY 05/26/17 11/24/20 History Levothyroxine Sodium [Synthroid] 50 mcg PO SUTUTHSA 05/26/17 11/24/20 History Levothyroxine Sodium [Synthroid] 75 mcg PO MOWEFR 05/26/17 11/24/20 History Omeprazole 20 mg PO BID 05/26/17 11/24/20 History Acetaminophen [Tylenol Extra 500 mg PO BID 04/08/20 11/24/20 History Strength] Aspirin [Adult Low Dose Aspirin EC] 81 mg PO DAILY 04/08/20 11/24/20 History Atorvastatin [Lipitor] 40 mg PO HS 04/08/20 11/24/20 History DULoxetine HCL [Cymbalta] 60 mg PO DAILY 04/08/20 11/24/20 History Dicyclomine [Bentyl] 20 mg PO DAILY 04/08/20 11/24/20 History Digoxin [Lanoxin] 125 mcg PO DAILY 04/08/20 11/24/20 History Insulin Detemir (Levemir) [Levemir] 28 unit SQ HS 04/08/20 11/24/20 History L.acidoph,Paracasei, B.lactis 1 cap PO BID 04/08/20 11/24/20 History [Probiotic] carvediloL [Coreg] 3.125 mg PO BID 04/08/20 11/24/20 History lisinopriL [Zestril] 2.5 mg PO DAILY 04/08/20 11/24/20 History sitaGLIPtin [Januvia] 100 mg PO DAILY 04/08/20 11/24/20 History Cholecalciferol [Vitamin D3 (25 50 mcg PO DAILY 11/24/20 11/24/20 History Mcg = 1000 Iu)] Gabapentin 300 mg PO BID PRN 11/24/20 11/24/20 History HYDROcodone/APAP 5-325MG [[place] 1 tab PO Q4HR PRN 11/24/20 11/24/20 History 5-325] Allergies Allergy/AdvReac Type Severity Reaction Status Date / Time Sulfa (Sulfonamide Allergy Severe Rash/Hives Verified 11/24/20 07:44 Antibiotics) nitrofurantoin Allergy Rash/Hives Verified 11/24/20 07:44 [From Furadantin] ofloxacin [From Floxin] Allergy high fever Verified 11/24/20 07:44 oxybutynin [From Ditropan] Allergy Rash/Hives Verified 11/24/20 07:44 Penicillins Allergy Rash/Hives Verified 11/24/20 07:44 vancomycin Allergy Rash/Hives Verified 11/24/20 07:44 metformin AdvReac "LETHARGIC Verified 11/24/20 07:44 PER DAUGHTER NANO" Physical Exam Vitals: Vital Signs Temp Pulse Pulse Resp BP BP Pulse Ox 11/24/20 07:45 97.9 F 81 16 129/63 98 11/24/20 04:07 98.2 F 88 16 136/61 99 11/24/20 04:06 98.2 F 86 16 136/61 99 11/24/20 04:00 98.0 F 78 16 148/64 97 11/24/20 03:37 97.9 F 77 16 137/71 100 11/24/20 03:27 98.3 F 82 16 137/62 100 11/24/20 02:57 97.9 F 89 16 147/63 100 11/24/20 00:56 98.1 F 85 18 146/44 100 Intake and Output 11/23/20 11/24/20 11/24/20 22:59 06:59 14:59 Intake Total 0 550 Balance 0 550 Intake: Oral 240 Blood Product 0 310 Rc As-1 Unit 0 310 [id number] Other: Weight 30 kg On physical examination, patient appears comfortable in no apparent distress. HEAD: Normocephalic, atraumatic. EYES: No scleral icterus. No conjunctival injection. MOUTH: No lesions, tongue midline. NECK: Trachea midline, no gross abnormalities. CHEST: Decreased air entry in all ureña. HEART: S1-S2 appreciated. ABDOMEN: Soft, thin and nontender. Bowel sounds are positive. No organomegaly. No guarding or rigidity. EXTREMITIES: Right buvxc-lio-gqel amputation. SKIN: No rashes, no jaundice. NEUROLOGIC: Alert and oriented x3. No focal deficits. Results CBC & Chem 7: 11/24/20 19:53 11/24/20 01:12 Labs: Abnormal Lab Results - Last 24 Hours (Table) 11/24/20 11/24/20 11/24/20 Range/Units 01:12 01:12 01:12 RBC 3.15 L (3.80-5.40) m/uL Hgb 5.8 L* (11.4-16.0) gm/dL Hct 21.6 L (34.0-46.0) % MCV 68.6 L (80.0-100.0) fL MCH 18.3 L (25.0-35.0) pg MCHC 26.7 L (31.0-37.0) g/dL RDW 17.3 H (11.5-15.5) % Metamyelocytes # (Man) 0.06 H (0) k/uL Myelocytes # (Manual) 0.06 H (0) k/uL APTT 20.1 L (22.0-30.0) sec Creatinine 0.43 L (0.52-1.04) mg/dL Glucose 131 H (74-99) mg/dL POC Glucose (mg/dL) (75-99) mg/dL AST 47 H (14-36) U/L Crossmatch 11/24/20 11/24/20 11/24/20 Range/Units 01:12 06:32 08:12 RBC 3.03 L (3.80-5.40) m/uL Hgb 6.7 L* (11.4-16.0) gm/dL Hct 23.9 L (34.0-46.0) % MCV 78.7 L D (80.0-100.0) fL MCH 22.0 L (25.0-35.0) pg MCHC 28.0 L (31.0-37.0) g/dL RDW 19.4 H (11.5-15.5) % Metamyelocytes # (Man) (0) k/uL Myelocytes # (Manual) (0) k/uL APTT (22.0-30.0) sec Creatinine (0.52-1.04) mg/dL Glucose (74-99) mg/dL POC Glucose (mg/dL) 100 H (75-99) mg/dL AST (14-36) U/L Crossmatch See Detail 11/24/20 Range/Units 10:59 RBC 2.80 L (3.80-5.40) m/uL Hgb 6.2 L* (11.4-16.0) gm/dL Hct 20.7 L (34.0-46.0) % MCV 73.7 L D (80.0-100.0) fL MCH 22.1 L (25.0-35.0) pg MCHC 29.9 L (31.0-37.0) g/dL RDW 20.0 H (11.5-15.5) % Metamyelocytes # (Man) (0) k/uL Myelocytes # (Manual) (0) k/uL APTT (22.0-30.0) sec Creatinine (0.52-1.04) mg/dL Glucose (74-99) mg/dL POC Glucose (mg/dL) (75-99) mg/dL AST (14-36) U/L Crossmatch Assessment and Plan (1) Microcytic anemia Narrative/Plan: 85-year-old female with multiple medical comorbidities including chronic microcytic anemia. Patient has undergone endoscopic evaluation in the past with no source of GI bleeding noted. Previously she underwent EGD and colonoscopy and 05/2017 with findings of Patiño's esophagus and a moderate size hiatal hernia and diverticulosis on colonoscopy. This was repeated within the past 6 months as per reports by the patient at [facility] with no source of bleeding noted. She denies ever having a video capsule endoscopy. She denies any abdominal pain, nausea or vomiting. Bowel movements are dark at baseline. She does follow up with hematology service in the outpatient setting. Current Visit: Yes Status: Acute Code(s): D50.9 - IRON DEFICIENCY ANEMIA, UNSPECIFIED SNOMED Code(s): 382376350 Plan: Supportive care Clear liquid diet Continue monitor hemoglobin and hematocrit and transfuse as needed Hematology service consulted and anemia lab evaluation ordered Nothing by mouth after midnight Patient scheduled for a push enteroscopy and video capsule endoscopy tomorrow Continue to hold aspirin and Plavix therapy at this time Thank you for allowing us to participate in the care of the patient
[2020-11-25] MEDS: SODIUM CHLORIDE 0.9% 1,000 ML IV SCH (05:36)
[2020-11-25 06:06] LABS: Glucose,Whole Blood 228 mg/dL (75-99)
[2020-11-25] MEDS ORDERED: LEVOTHYROXINE 75 MCG TAB PO SCH (06:30)
[2020-11-25] MEDS: carvediloL 3.125 MG TAB PO SCH ×2 (06:55→18:14)
[2020-11-25 07:48] LABS: Anisocytosis Slight; HCT 35.4 % (34.0-46.0); HGB 10.6 gm/dL (11.4-16.0); Hypochromasia Marked; MCH 23.5 pg (25.0-35.0); MCHC 29.8 g/dL (31.0-37.0); Mean Platelet Volume 7.9; Microcytosis Slight; Platelet Count 395 k/uL (150-450); Poikilocytosis Marked; RBC 4.48 m/uL (3.80-5.40); RDW 19.7 % (11.5-15.5)
[2020-11-25 09:09] LABS: T4, Free (Free Thyroxine) 1.25 ng/dL (0.78-2.19)
[2020-11-25] MEDS: DIGOXIN 125 MCG TAB PO SCH (09:15)
[2020-11-25] MEDS: ACETAMINOPHEN TAB 500 MG TAB PO SCH ×2 (09:16→20:36)
[2020-11-25 09:23] LABS: Myelocytes % 1 %; Neutrophils % (M) 79 %; Nucleated Red Blood Cells 1 /100 WBC (0-0); Total Cells Counted 200
[2020-11-25 09:24] LABS: Basophils # (M) 0.05 k/uL (0-0.2); Eosinophils # (M) 0.16 k/uL (0-0.7); Lymphocytes # (M) 0.59 k/uL (1.0-4.8); Monocytes # (M) 0.32 k/uL (0-1.0); Myelocytes # (M) 0.05 k/uL (0); Neutrophils # (M) 4.27 k/uL (1.3-7.7); WBC 5.4 k/uL (3.8-10.6)
[2020-11-25 10:40] LABS: % Iron Saturation 2.09 (12.00-45.00); Ferritin 6.6 ng/mL (10.0-291.0); Folate, Serum >24.0 ng/mL; Iron 10 ug/dL (50-170); Total Iron Binding Capacity 479 ug/dL (228-460)
[2020-11-25] MEDS ORDERED: SODIUM FERRIC GLUCONAT-SUCROSE 125 MG in SODIUM CHLORIDE 0.9% 100 ML IVPB SCH (11:30)
[2020-11-25 11:47] LABS: Glucose,Whole Blood 158 mg/dL (75-99)
[2020-11-25] MEDS ORDERED: LIDOCAINE 1% INJ 10MG/ML (20 ML MDV) ONE (12:31)
[2020-11-25] MEDS ORDERED: PROPOFOL 10 MG/ML 20 ML VIAL IV ONE (12:31)
[2020-11-25] MEDS ORDERED: IV FLUID CONTINUATION 1,000 ML IV ONE ×2 (12:32)
--- NOTE | 2020-11-25 13:25 | P.PCN ---
Date of Procedure: 11/25/20 Description of Procedure: BRIEF HISTORY: 85-year-old female with multiple medical comorbidities including diabetes mellitus, COPD, chronic anemia, prior DVT, IBS, GERD, hyperlipidemia, hypertension, osteoarthritis and recent right below the knee amputation at [facility] who presented for evaluation of fatigue and anemia. The patient has a known history of chronic anemia for which she follows up with hematology. Previously she has undergone EGD and colonoscopy in 05/2017 with findings of its esophagus and a moderate size hiatal hernia and diverticulosis on colonoscopy, this was repeated with both EGD and colonoscopy performed on 06/04/2020 with findings of Patiño's esophagus and hiatal hernia on EGD and polypectomy and diverticulosis on colonoscopy. She denies any nausea, vomiting, abdominal pain and reports that bowel movements are dark at baseline. She had been reporting weakness and dizziness and presented to the hospital where she was found to have a fall in her hemoglobin from 9.3 previously down to 4.5 subsequently 6.2 after transfusion. PROCEDURE PERFORMED: Esophagogastroduodenoscopy with cold probe ablation. PREOPERATIVE DIAGNOSIS: Iron deficiency anemia. ESTIMATED BLOOD LOSS: Minimal. IV sedation per anesthesia. PROCEDURE: After informed consent was obtained, the patient was brought into the endoscopy unit. IV sedation was administered by Anesthesia under continuous monitoring. Initially the Olympus GIF-190 video endoscope was inserted into the mouth. Esophagus intubated without any difficulty. It was gradually advanced into the stomach and duodenum and carefully examined. The bulb and the second part of the duodenum appeared grossly normal except for 4 nonbleeding angiodysplasia one in the bulb and 3 in the second portion of the duodenum which were treated with gold probe ablation. The scope at this time was withdrawn to the stomach, adequately insufflated with air, and upon careful examination, mucosa of the antrum, body, cardia and the fundus appeared normal. The scope was then withdrawn into the esophagus. The GE junction was located at 36 cm from the incisors, with a 2 cm hiatal hernia noted. The patient had short segment Patiño esophagus which had previously been noted otherwise the esophagus appeared normal. There were no erosions or ulcerations seen and the patient tolerated the procedure well. IMPRESSION: 1. 4 nonbleeding angiectasia in the duodenum treated with gold probe ablation. 2. Small hiatal hernia. 3. Patiño's esophagus. RECOMMENDATIONS: The findings of this examination were discussed with the patient. At this time plan is for video capsule endoscopy for further evaluation with suspicion for small bowel angiectasia. Nothing by mouth for now. Continue to monitor hemoglobin and hematocrit and transfuse as needed. Continue to hold anticoagulation therapy for now.
[2020-11-25] MEDS ORDERED: SIMETHICONE 40 MG/0.6 ML DROPS 2,000 MG/30 ML BOTTLE PO ONE (13:58)
[2020-11-25 14:59] VITALS: BMI 16.0
[2020-11-25] MEDS: PANTOPRAZOLE 40 MG TABLET PO SCH ×2 (16:09→20:36)
[2020-11-25] MEDS: LACTOBACILLUS ACIDOPH & BULGAR 1 EACH PACKET PO SCH ×2 (16:09→20:36)
[2020-11-25] MEDS ORDERED: cloNIDine HCL 0.1 MG TAB PO STA (16:37)
[2020-11-25 17:03] LABS: Glucose,Whole Blood 137 mg/dL (75-99)
[2020-11-25] MEDS: LINAGLIPTIN 5 MG TABLET PO SCH (18:15)
[2020-11-25] MEDS: DICYCLOMINE 20 MG TAB PO SCH (18:15)
[2020-11-25] MEDS: DULoxetine HCL 60 MG CAPSULE.DR PO SCH (18:15)
[2020-11-25] MEDS: SODIUM FERRIC GLUCONAT-SUCROSE 125 MG in SODIUM CHLORIDE 0.9% 100 ML IVPB SCH (18:15)
--- NOTE | 2020-11-25 19:30 | P.PN ---
Subjective Progress Note Date: 11/25/20 Principal diagnosis: GI bleed, anemia In follow-up today patient is doing well, she received a dose of IV iron, she is also received 2 units of packed red blood cells. Her hemoglobin today is 10.6. She states that whenever she becomes anemic she starts to feel tired. She is f eeling pretty good today. Tolerating oral intake. Objective - Vital Signs Vital signs: Vital Signs Temp 98.0 F 11/25/20 08:00 Pulse 80 11/25/20 16:00 Resp 16 11/25/20 16:00 BP 173/72 11/25/20 16:00 Pulse Ox 99 11/25/20 16:00 Intake & Output 11/25/20 11/25/20 11/26/20 06:59 18:59 06:59 Intake Total 20 300 Output Total 500 500 Balance -480 300 -500 Weight 37.2 kg 37.2 kg Intake: IV 20 300 Invasive Line 1 20 Output: Urine 500 Urine/Stool Mix 500 Other: Voiding Method Bedside Commode # Voids 1 2 # Bowel Movements 1 4 - Constitutional General appearance: Present: cooperative, no acute distress, thin - EENT Eyes: Present: anicteric sclerae, EOMI ENT: Present: hearing grossly normal - Respiratory Respiratory: bilateral: CTA - Cardiovascular Heart sounds: normal: S1, S2 - Peripheral edema leg Peripheral Edema: right: Other (AKA), left: None - Gastrointestinal General gastrointestinal: Present: normal bowel sounds, soft - Neurologic Neurologic: Present: CNII-XII intact - Musculoskeletal Musculoskeletal: Present: generalized weakness, strength equal bilaterally - Psychiatric Psychiatric: Present: A&O x's 3, appropriate affect, intact judgment & insight - Labs CBC & Chem 7: 11/25/20 07:02 11/24/20 01:12 Labs: Abnormal Lab Results - Last 24 Hours (Table) 11/24/20 11/24/20 11/24/20 Range/Units 01:12 19:53 20:16 RBC 3.71 L (3.80-5.40) m/uL Hgb 8.8 L D (11.4-16.0) gm/dL Hct 28.9 L (34.0-46.0) % MCV 77.9 L (80.0-100.0) fL MCH 23.6 L (25.0-35.0) pg MCHC 30.3 L (31.0-37.0) g/dL RDW 20.1 H (11.5-15.5) % Lymphocytes # (Manual) (1.0-4.8) k/uL Myelocytes # (Manual) (0) k/uL Nucleated RBCs (0-0) /100 WBC POC Glucose (mg/dL) 170 H (75-99) mg/dL Iron 10 L (50-170) ug/dL TIBC 479 H (228-460) ug/dL % Saturation 2.09 L (12.00-45.00) Ferritin 6.6 L (10.0-291.0) ng/mL TSH (0.465-4.680) mIU/L 11/25/20 11/25/20 11/25/20 Range/Units 06:05 07:02 07:02 RBC (3.80-5.40) m/uL Hgb 10.6 L (11.4-16.0) gm/dL Hct (34.0-46.0) % MCV 79.0 L (80.0-100.0) fL MCH 23.5 L (25.0-35.0) pg MCHC 29.8 L (31.0-37.0) g/dL RDW 19.7 H (11.5-15.5) % Lymphocytes # (Manual) 0.59 L (1.0-4.8) k/uL Myelocytes # (Manual) 0.05 H (0) k/uL Nucleated RBCs 1 H (0-0) /100 WBC POC Glucose (mg/dL) 228 H (75-99) mg/dL Iron (50-170) ug/dL TIBC (228-460) ug/dL % Saturation (12.00-45.00) Ferritin (10.0-291.0) ng/mL TSH 0.197 L (0.465-4.680) mIU/L 11/25/20 11/25/20 Range/Units 11:35 16:56 RBC (3.80-5.40) m/uL Hgb (11.4-16.0) gm/dL Hct (34.0-46.0) % MCV (80.0-100.0) fL MCH (25.0-35.0) pg MCHC (31.0-37.0) g/dL RDW (11.5-15.5) % Lymphocytes # (Manual) (1.0-4.8) k/uL Myelocytes # (Manual) (0) k/uL Nucleated RBCs (0-0) /100 WBC POC Glucose (mg/dL) 158 H 137 H (75-99) mg/dL Iron (50-170) ug/dL TIBC (228-460) ug/dL % Saturation (12.00-45.00) Ferritin (10.0-291.0) ng/mL TSH (0.465-4.680) mIU/L Assessment and Plan (1) GI bleed Narrative/Plan: Reviewed GI reports. 4 nonbleeding ectasia in the duodenum were treated today. Patiño's esophagus. Plan is for a video capsule Endo. Hold anticoagulation Current Visit: Yes Status: Acute Priority: High Code(s): K92.2 - GASTROINTESTINAL HEMORRHAGE, UNSPECIFIED SNOMED Code(s): 17977323 (2) Hypochromic microcytic anemia Narrative/Plan: Patient was due for follow-up with [facility] office but, she recently had her right leg amputated. So, this caused some appt juggling Patient was due for iron evaluation and likely parenteral iron supplementation. Patient will receive dose daily while inpatient. She has received 2 units of blood for which her body will utilize the heme. Pt is okay from a Hematology standpoint to be discharged once she is cleared by Attending and other Consulted Physicians. Have put in for patient to have a two-week follow-up appointment to review the hemoglobin in [facility] ofc. After blood and iron patient will need about 4 weeks before her iron studies can be reevaluated. Methylmalonic acid has also been ordered for review due to low/normal B12 Current Visit: Yes Status: Chronic Priority: Medium Code(s): D50.9 - IRON DEFICIENCY ANEMIA, UNSPECIFIED SNOMED Code(s): 88252623
[2020-11-25 20:11] LABS: Glucose,Whole Blood 229 mg/dL (75-99)
[2020-11-25] MEDS: ATORVASTATIN 40 MG TAB PO SCH (20:36)
--- NOTE | 2020-11-25 21:07 | P.PN ---
Progress Note - Text Progress Note Date: 11/25/20 Chief Complaint: Weak and tired History of presenting complaint: This is a pleasant 85-year-old patient of Dr. Bettye Oliveira. Has a history of chronic GI bleed with black stools. Has had multiple blood transfusions. Patient about 6 weeks ago underwent right below-knee amputation at at [facility]. That was lasting patient had blood transfusion. Patient presented early hours of this morning feeling weak diet and rundown. Had continued to have dock stools. Hemoglobin was found to be less than 7 and blood was ordered. Patient's last EGD was by Dr. Paula it was unremarkable. No abdominal pain. Appetite is good. No weight loss. Patient does have a walker reveal chair. Of feeding prosthesis for his right lower extremity. Dizzy tired and rundown. Admitted with a hemoglobin of 5.8. Given 2 units of blood. Today-underwent EGD. 4 nonbleeding angiectasia in the duodenum treated with cold probe ablation. Patiño's esophagus. Patient comfortable Review of systems: Was done for constitutional, cardiovascular, GI, pulmonary. relevant finding as above Active Medications Acetaminophen (Acetaminophen Tab 500 Mg Tab) 500 mg PO BID [facility] Last Admin: 11/25/20 20:36 Dose: 500 mg Documented by: Atorvastatin Calcium (Atorvastatin 40 Mg Tab) 40 mg PO HS [facility] Last Admin: 11/25/20 20:36 Dose: 40 mg Documented by: Carvedilol (Carvedilol 3.125 Mg Tab) 3.125 mg PO BID-W/MEALS [facility] Last Admin: 11/25/20 18:14 Dose: 3.125 mg Documented by: Cholecalciferol (Cholecalciferol 25 Mcg (1000 Iu) Tablet) 25 mcg PO DAILY [facility] Last Admin: 11/24/20 07:51 Dose: 25 mcg Documented by: Dicyclomine HCl (Dicyclomine 20 Mg Tab) 20 mg PO DAILY [facility] Last Admin: 11/25/20 18:15 Dose: 20 mg Documented by: Digoxin (Digoxin 125 Mcg Tab) 125 mcg PO DAILY [facility] Last Admin: 11/25/20 09:15 Dose: 125 mcg Documented by: Duloxetine HCl (Duloxetine Hcl 60 Mg Fernando.) 60 mg PO DAILY [facility] Last Admin: 11/25/20 18:15 Dose: Not Given Documented by: Sodium Chloride (Saline 0.9%) 1,000 mls @ 20 mls/hr IV .Q24H [facility] Last Admin: 11/25/20 05:36 Dose: Not Given Documented by: Ferric Sodium Gluconate 125 mg (/ Sodium Chloride) 110 mls @ 100 mls/hr IVPB DAILY@1200 [facility] Stop: 11/27/20 13:05 Last Admin: 11/25/20 18:15 Dose: 100 mls/hr Documented by: Lactobacillus Acidoph/Bulgaricus (Lactobacillus Acidoph & Bulgar 1 Each Packet) 1 each PO BID [facility] Last Admin: 11/25/20 20:36 Dose: 1 each Documented by: Levothyroxine Sodium (Levothyroxine 50 Mcg Tab) 50 mcg PO SuTuThSa@0630 [facility] Last Admin: 11/24/20 07:04 Dose: 50 mcg Documented by: Levothyroxine Sodium (Levothyroxine 75 Mcg Tab) 75 mcg PO MOWEFR [facility] Last Admin: 11/25/20 06:55 Dose: 75 mcg Documented by: Linagliptin (Linagliptin 5 Mg Tablet) 5 mg PO DAILY [facility] Last Admin: 11/25/20 18:15 Dose: Not Given Documented by: Lisinopril (Lisinopril 2.5 Mg Tab) 2.5 mg PO DAILY [facility] Last Admin: 11/25/20 09:15 Dose: 2.5 mg Documented by: Naloxone HCl (Naloxone 0.4 Mg/Ml 1 Ml Vial) 0.2 mg IV Q2M PRN PRN Reason: Opioid Reversal Pantoprazole Sodium (Pantoprazole 40 Mg Tablet) 40 mg PO BID [facility] Last Admin: 11/25/20 20:36 Dose: 40 mg Documented by: Past medical history to include: In general, COPD, diabetes, DVT, GERD, hypertension, hyperlipidemia, memory impairment, Mykel arthritis, rheumatoid arthritis, thyroid disorder, vascular disorder, irritable bowel syndrome, kidneys stones, low iron, coronary artery Nixon stent, stent in the right leg, angioplasty in both the lower extremities, right below-knee amputation Social history: Lives by herself. Started smoking as a teen, about a pack a day stopped smoking about 12 years ago. No alcohol. Physical examination: VITAL SIGNS: 98, 73, 16, 160/76, 100% room air GENERAL: BMI 12.9, laying in bed, awake. Wasting of the muscles loss of subcutaneous fat EYES: [Pupils equal. Conjunctiva pale . NECK: JVD not raised; masses not palpable. HEART: First and second heart sounds are normal; no edema. LUNGS: Respiratory rate normal; decreased breath sounds. ABDOMEN: Soft, nontender, liver spleen not palpable, no masses palpable. PSYCH: Alert and oriented x3; mood and affect normal. MUSCULAR skeletal: Evidence of severe OA especially in the hands, right below- knee amputation INVESTIGATIONS, reviewed in the clinical context: November 25: Hemoglobin 10.6 TSH 0.197 free T4 1 0.25 White count 5.8 hemoglobin 5.8 potassium 4.8 creatinine 0.43 Coronavirus [PCR]-not detected Assessment and plan: -Acute GI bleed from angiectasia in the duodenum. Status post gold probe cautery. For small bowel capsule study.- -Acute GI blood loss anemia. Patient received 2 units of blood -COPD in an previous smoker -GERD, continue PPI -Essential hypertension, continue Zestril -Hyperlipidemia, continue Lipitor -Mild cognitive impairment, follow clinically -Chronic rheumatoid arthritis and --primary osteoarthritis -Coronary artery disease prior history of stent, continue with Coreg Zestril -Recent right below-knee amputation, obviating prosthetic assessment -Peripheral arterial disease, on Lipitor and antiplatelet agents -Moderate protein calorie malnutrition, consult dietitian -Hypothyroid on Synthroid. With over replacement. Patient's TSH is low. We will cut back on Synthroid to 50 g daily -Diabetes mellitus type 2, chronically on insulin, follow Accu-Cheks. Hold off Levemir for now -Irritable bowel syndrome on Bentyl -Full code Care was discussed with the patient. For small bowel capsule study tomorrow
[2020-11-26] MEDS: SODIUM CHLORIDE 0.9% 1,000 ML IV SCH (04:53)
[2020-11-26 06:26] LABS: Glucose,Whole Blood 170 mg/dL (75-99)
[2020-11-26] MEDS: carvediloL 3.125 MG TAB PO SCH (06:36)
[2020-11-26 08:43] VITALS: TEMP 98.3
[2020-11-26] MEDS: PANTOPRAZOLE 40 MG TABLET PO SCH (08:43)
[2020-11-26] MEDS: CHOLECALCIFEROL 25 MCG (1000 IU) TABLET PO SCH (08:43)
[2020-11-26] MEDS: DICYCLOMINE 20 MG TAB PO SCH (08:43)
[2020-11-26] MEDS: LINAGLIPTIN 5 MG TABLET PO SCH (08:44)
[2020-11-26] MEDS: DIGOXIN 125 MCG TAB PO SCH (08:44)
[2020-11-26] MEDS: DULoxetine HCL 60 MG CAPSULE.DR PO SCH (08:44)
[2020-11-26] MEDS: ACETAMINOPHEN TAB 500 MG TAB PO SCH (08:44)
[2020-11-26] MEDS: SODIUM FERRIC GLUCONAT-SUCROSE 125 MG in SODIUM CHLORIDE 0.9% 100 ML IVPB SCH (08:47)
[2020-11-26] MEDS: LACTOBACILLUS ACIDOPH & BULGAR 1 EACH PACKET PO SCH (08:48)
--- NOTE | 2020-11-26 11:16 | P.PN ---
Subjective Progress Note Date: 11/26/20 Principal diagnosis: Anemia, GI bleed Patient seen and examined lying in bed. Reports no signs or symptoms of GI bleed. Denies any abdominal pain, nausea, or vomiting. CBC pending. Status post small bowel, results are pending. Patient had EGD yesterday with 4 small angiectasia in duodenum, nonbleeding. Segment of Patiño's esophagus and small hiatal hernia. Objective - Vital Signs Vital signs: Vital Signs Temp 98.3 F 11/26/20 08:00 Pulse 66 11/26/20 08:00 Resp 18 11/26/20 08:00 BP 175/76 11/26/20 08:00 Pulse Ox 97 11/26/20 08:00 Intake & Output 11/25/20 11/26/20 11/26/20 18:59 06:59 18:59 Intake Total 300 20 Output Total 940 Balance 300 -920 Weight 37.2 kg 37.1 kg Intake: IV 300 20 Invasive Line 1 20 Output: Urine 740 Stool 200 Other: Voiding Method Bedside Commode # Voids 1 # Bowel Movements 4 - Exam General appearance: The patient is alert, oriented, appears in no acute distress. HET: Head is normocephalic and atraumatic. Conjunctiva pink. Sclera anicteric. Neck: Supple without lymphadenopathy. Abdomen: Soft, nontender, nondistended with bowel sounds. No guarding or rigidity. Extremities: Normal skin color and turgor. No pedal edema Skin: No rashes, no jaundice Neurological: No focal deficits. Alert and oriented 3. - Labs CBC & Chem 7: 11/26/20 11:19 11/24/20 01:12 Labs: Abnormal Lab Results - Last 24 Hours (Table) 11/25/20 11/25/20 11/25/20 Range/Units 11:35 16:56 20:10 POC Glucose (mg/dL) 158 H 137 H 229 H (75-99) mg/dL 11/26/20 Range/Units 06:25 POC Glucose (mg/dL) 170 H (75-99) mg/dL Assessment and Plan (1) Microcytic anemia Narrative/Plan: 85-year-old female with multiple medical comorbidities including chronic microcytic anemia. Patient has undergone endoscopic evaluation in the past with no source of GI bleeding noted. Previously she underwent EGD and colonoscopy and 05/2017 with findings of Patiño's esophagus and a moderate size hiatal hernia and diverticulosis on colonoscopy. This was repeated within the past 6 months as per reports by the patient at [facility] with no source of bleeding noted. She denies ever having a video capsule endoscopy. She denies any abdominal pain, nausea or vomiting. Bowel movements are dark at baseline. She does follow up with hematology service in the outpatient setting. The patient is status post upper endoscopy revealing for nonbleeding angiectasia in the duodenum treated with gold probe ablation. Small hiatal hernia and Patiño's esophagus. The patient also underwent a small bowel video capsule endoscopy showing multiple angiectasia in the small bowel, with no active bleeding. Current Visit: Yes Status: Acute Code(s): D50.9 - IRON DEFICIENCY ANEMIA, UNSPECIFIED SNOMED Code(s): 628889039 Plan: 1. Supportive care 2. Patient may have consistent carbohydrate diet 3. Patient is status post EGD 4. Status post small bowel video capsule endoscopy 5. Stat CBC 6. Continue Protonix 7. Patient may be discharged home from a gastroenterology standpoint, recommend follow-up in 2 weeks 8. Patient will need close follow-up for repeat hemoglobin and hematocrit Thank you for this consultation we will continue to follow Dr. Trivedi I agree with the dictator's note, documented as a scribe by Cynthia Luke.
[2020-11-26 11:46] LABS: Glucose,Whole Blood 149 mg/dL (75-99)
[2020-11-26 12:08] LABS: Anisocytosis Moderate; HCT 28.3 % (34.0-46.0); Hypochromasia Marked; MCH 23.4 pg (25.0-35.0); MCHC 29.8 g/dL (31.0-37.0); MCV 78.4 fL (80.0-100.0); Mean Platelet Volume 7.8; Microcytosis Moderate; Platelet Count 340 k/uL (150-450); Poikilocytosis Marked; RBC 3.61 m/uL (3.80-5.40); RDW 20.8 % (11.5-15.5); WBC 7.3 k/uL (3.8-10.6)
[2020-11-26 12:10] LABS: HGB 8.4 gm/dL (11.4-16.0)
[2020-11-26 13:29] VITALS: BP 173/75; PULSE 69; RESP 16
--- NOTE | 2020-11-26 14:09 | P.PN ---
Subjective Progress Note Date: 11/26/20 Principal diagnosis: GI bleed Hemoglobin stable this am, no complaints of nausea, pain, bleeding. Status POst GI work-up Objective - Vital Signs Vital signs: Vital Signs Temp 98.3 F 11/26/20 08:00 Pulse 69 11/26/20 12:00 Resp 16 11/26/20 12:00 BP 173/75 11/26/20 12:00 Pulse Ox 97 11/26/20 12:00 Intake & Output 11/25/20 11/26/20 11/26/20 18:59 06:59 18:59 Intake Total 300 20 Output Total 940 Balance 300 -920 Weight 37.2 kg 37.1 kg Intake: IV 300 20 Invasive Line 1 20 Output: Urine 740 Stool 200 Other: Voiding Method Bedside Commode # Voids 1 # Bowel Movements 4 - Exam Constitutional General appearance: Present: cooperative, no acute distress, thin - EENT Eyes: Present: anicteric sclerae, EOMI ENT: Present: hearing grossly normal - Respiratory Respiratory: bilateral: CTA - Cardiovascular Heart sounds: normal: S1, S2 - Peripheral edema leg Peripheral Edema: right: Other (AKA), left: None - Gastrointestinal General gastrointestinal: Present: normal bowel sounds, soft - Neurologic Neurologic: Present: CNII-XII intact - Musculoskeletal Musculoskeletal: Present: generalized weakness, strength equal bilaterally - Psychiatric Psychiatric: Present: A&O x's 3, appropriate affect, intact judgment & insight - Labs CBC & Chem 7: 11/26/20 11:19 11/24/20 01:12 Labs: Abnormal Lab Results - Last 24 Hours (Table) 11/25/20 11/25/20 11/26/20 Range/Units 16:56 20:10 06:25 RBC (3.80-5.40) m/uL Hgb (11.4-16.0) gm/dL Hct (34.0-46.0) % MCV (80.0-100.0) fL MCH (25.0-35.0) pg MCHC (31.0-37.0) g/dL RDW (11.5-15.5) % POC Glucose (mg/dL) 137 H 229 H 170 H (75-99) mg/dL 11/26/20 11/26/20 Range/Units 11:19 11:44 RBC 3.61 L (3.80-5.40) m/uL Hgb 8.4 L D (11.4-16.0) gm/dL Hct 28.3 L (34.0-46.0) % MCV 78.4 L (80.0-100.0) fL MCH 23.4 L (25.0-35.0) pg MCHC 29.8 L (31.0-37.0) g/dL RDW 20.8 H (11.5-15.5) % POC Glucose (mg/dL) 149 H (75-99) mg/dL Assessment and Plan Plan: Assessment and Plan GI bleed Reviewed GI reports. 4 nonbleeding ectasia in the duodenum were treated today. Patiño's esophagus. Status a video capsule Endo, results pending. 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 So, this caused some appt juggling Patient was due for iron evaluation and likely parenteral iron supplementation. Patient will receive dose daily while inpatient. She has received 2 units of blood for which her body will utilize the heme. Pt is okay from a Hematology standpoint to be discharged once she is cleared by Attending and other Consulted Physicians. Have put in for patient to have a two-week follow-up appointment to review the hemoglobin in [facility]. After blood and iron patient will need about 4 weeks before her iron studies can be reevaluated. Methylmalonic acid has also been ordered for review due to low/normal B12 ok for discharge from hematology standpoint
[2020-11-27] MEDS ORDERED: LEVOTHYROXINE 50 MCG TAB PO SCH (06:30)
== END 2020-11-26 16:10 | disposition home or self-care (01) | DRG 378 ==
LOC: EC 00:51 → 3SCARD 02:39
PROVIDERS: ADMIT Hospitalist; ATTEND Hospitalist
PROC: 0W3P8ZZ Control Bleeding in Gastrointestinal Tract, Via Natural or Artificial Opening Endoscopic (ICD-10-PCS; principal; 2020-11-25 08:05)
PROC: 30233N1 Transfusion of Nonautologous Red Blood Cells into Peripheral Vein, Percutaneous Approach (ICD-10-PCS; principal; 2020-11-25 08:05)
PROC: 0D598ZZ Destruction of Duodenum, Via Natural or Artificial Opening Endoscopic (ICD-10-PCS; principal; 2020-11-25 08:05)
DX: K31.811 Angiodysplasia of stomach and duodenum with bleeding (principal); E44.0 Moderate protein-calorie malnutrition; D62 Acute posthemorrhagic anemia; K22.70 Barrett's esophagus without dysplasia; D50.9 Iron deficiency anemia, unspecified; E11.51 Type 2 diabetes mellitus with diabetic peripheral angiopathy without gangrene; J44.9 Chronic obstructive pulmonary disease, unspecified; M06.9 Rheumatoid arthritis, unspecified; Z89.511 Acquired absence of right leg below knee; Z79.4 Long term (current) use of insulin; K44.9 Diaphragmatic hernia without obstruction or gangrene; K57.90 Diverticulosis of intestine, part unspecified, without perforation or abscess without bleeding; Z20.822 Contact with and (suspected) exposure to COVID-19; K21.9 Gastro-esophageal reflux disease without esophagitis; K58.9 Irritable bowel syndrome, unspecified; I25.10 Atherosclerotic heart disease of native coronary artery without angina pectoris; I10 Essential (primary) hypertension; E78.5 Hyperlipidemia, unspecified; E03.9 Hypothyroidism, unspecified; G43.909 Migraine, unspecified, not intractable, without status migrainosus; G31.84 Mild cognitive impairment of uncertain or unknown etiology; M19.91 Primary osteoarthritis, unspecified site; F41.9 Anxiety disorder, unspecified; Z95.5 Presence of coronary angioplasty implant and graft; Z90.710 Acquired absence of both cervix and uterus; Z95.828 Presence of other vascular implants and grafts; Z98.890 Other specified postprocedural states; Z98.42 Cataract extraction status, left eye; Z98.41 Cataract extraction status, right eye; Z88.1 Allergy status to other antibiotic agents; Z88.0 Allergy status to penicillin; Z88.2 Allergy status to sulfonamides; Z88.8 Allergy status to other drugs, medicaments and biological substances; Z79.02 Long term (current) use of antithrombotics/antiplatelets; Z79.890 Hormone replacement therapy; Z79.82 Long term (current) use of aspirin; Z79.899 Other long term (current) drug therapy; Z87.891 Personal history of nicotine dependence; Z87.442 Personal history of urinary calculi; Z86.718 Personal history of other venous thrombosis and embolism; Z86.14 Personal history of Methicillin resistant Staphylococcus aureus infection
CPT/HCPCS: 36415; 43255; 80053; 80061; 80162; 81003; 82607; 82728; 82746; 83036; 83540; 83550; 83921; 84439; 84443; 84484; 85025; 85027; 85610; 85730; 86850; 86900; 86901; 86920; 87635; 91110; 93005; 96374; 99285